=== PATIENT | female | born 1990 | race Caucasian/White ===

== ENCOUNTER 2018-04-19 14:33 | Inpatient (IN) ==
[2018-04-19] MEDS ORDERED: fentaNYL Citrate Inj 100 MCG/2 ML Ampul IV.PUSH PRN ×2 (15:34)
[2018-04-19] MEDS ORDERED: Sodium Chlor 0.9% Inj 500 ML IV.SIG PRN (15:34)
[2018-04-19] MEDS ORDERED: Sod Chloride 0.9% Inj 1,000 ML IV.CONT PRN (15:34)
[2018-04-19] MEDS ORDERED: Oxytocin 30 Units/500ml Premix 30 UNITS/500 ML BAG IV.SIG ONE (15:34)
[2018-04-19] MEDS ORDERED: Naloxone Inj 0.4 MG/ML Vial IV.PUSH PRN (15:34)
--- NOTE | 2018-04-19 15:44 | P.HPOB ---
History of Present Illness Service: [facility] [place] Primary Care Physician: No Primary Care Physician Chief Complaint: Contractions History of Present Illness: This 28 y/o female , EDC 04/28/18, EGA 38 5/7 wks presents to OB ED with c/ o contractions. The contractions started about 12:30 PM. +FM, No VB, No LOF. Her has been complicated by diet controlled GDM. She denies any other probs. She has had PNC with Dr. Wolff. Weeks Gestation:: 38 Para: 1 : 2 Review of Systems All other systems reviewed negative except as stated in HPI PMFSH - History History Provided By: Patient - Medical / Surgical Hx Neg / Unobtainable Surgical History: No Previous Surgery - Medical History Medical History: Medical History (Last Updated 04/19/18 @ 15:38 by Vee Tolbert DO) Gestational diabetes - Social History I have reviewed the patient's Social History: Yes - Tobacco History Smoking Status: Current every day smoker Tobacco Type: Cigarettes Cigarettes Per Day: 4 - Alcohol History How Often Do You Have a Drink Containing Alcohol: Never (occ Etoh when not ) - Substance Use History Substance History: No History of Abuse - Travel History History of Recent Travel: No Medications and Allergies Allergies Allergy/AdvReac Type Severity Reaction Status Date / Time No Known Allergies Allergy Uncoded 01/01/12 18:49 Home Medications Medication Instructions Recorded Confirmed Type Vitamin 04/19/18 History Tums PRN 04/19/18 History Tylenol PRN 04/19/18 History Exam Vital signs: Vital Signs 04/19/18 14:59 04/19/18 15:00 Temperature 98.2 F Pulse Rate 116 H Blood Pressure 128/85 Narrative: GENERAL: Well-nourished, well-developed patient. SKIN: Warm and dry. HEAD: Normocephalic and atraumatic. EYES: No scleral icterus. No injection or drainage. ENT: No nasal drainage noted. Mucous membranes pink. Airway patent. NECK: Supple, trachea midline. No JVD. CARDIOVASCULAR: Regular rate and rhythm without murmurs, gallops, or rubs. RESPIRATORY: Breath sounds equal bilaterally. No accessory muscle use. ABDOMEN/GI: Abdomen soft, non-tender, bowel sounds present, no rebound, no guarding Gravid GENITOURINARY: External Genitalia: intact and normal in appearance BUS glands: [normal] Cervix: [mid] Dilatation: [4-5] Effacement: [60] Station: [-] Presentation: [vtx] Membranes: [intact] Uterine Contractions: [every 3-4 min] FHT's: Category: [1] Baseline: [140] Reactive: [Yes] Variability: [Mod] Decels: [None] +Accels EXTREMITIES: No cyanosis or edema. BACK: Nontender without obvious deformity. No CVA tenderness. NEUROLOGICAL: Awake and alert. Motor and sensory grossly within normal limits. Five out of 5 muscle strength in all muscle groups. Normal speech. Results - Labs Group B Strep: Negative Assessment and Plan - Diagnosis (1) Gestational diabetes, diet controlled Code(s): O24.410 - Gestational diabetes mellitus in , diet controlled Status: Acute Qualifiers: Trimester: third trimester Qualified Code(s): O24.410 - Gestational diabetes mellitus in , diet controlled (2) Uterine contractions during Code(s): O62.2 - Other uterine inertia Status: Acute (3) 38 weeks gestation of Code(s): Z3A.38 - 38 weeks gestation of Status: Acute - Plan Admit in labor D/w Dr. Wolff Discharge Plan - Physicians Team ED Provider: Vee Tolbert Primary Care Provider: Primary Care Tracy Thomas - Rxs /Orders / Referrals /Forms Prescriptions: No Action Vitamin Tums PRN (Reason: Acid Reflux) Tylenol PRN (Reason: Pain) - Discharge Instructions Print Language: Russian
[2018-04-19] MEDS ORDERED: Citric Acid/Sodium Citrate Liq 30 ML UDC PO SCH (15:45)
[2018-04-19 16:19] LABS: Baso # (Auto) 0.1 th/mm3 (0.0-0.2); Baso % (Auto) 0.5 % (0.0-2.0); Eos % (Auto) 0.3 % (0.0-4.0); Hematocrit 34.3 % (35.0-46.0); Hemoglobin 11.6 gm/dL (11.6-15.3); Lymph # (Auto) 1.5 th/mm3 (1.0-4.8); Lymph % (Auto) 14.7 % (9.0-44.0); Mean Corpuscular HGB Conc 33.9 % (32.0-36.0); Mean Corpuscular Hemoglobin 28.8 pg (27.0-34.0); Mean Corpuscular Volume 84.9 fL (80.0-100.0); Mean Platelet Volume 7.6 fL (7.0-11.0); Mono % (Auto) 9.3 % (0.0-8.0); Neut # (Auto) 7.8 th/mm3 (1.8-7.7); Neut % (Auto) 75.2 % (16.0-70.0); Platelet Count 345 th/mm3 (150-450); Red Blood Count 4.04 mil/mm3 (4.00-5.30); Red Cell Distribution Width 13.8 % (11.6-17.2); White Blood Count 10.3 th/mm3 (4.0-11.0)
[2018-04-19 17:15] LABS: Bacteria,Urine Rare /hpf; Bilirubin,Urine Negative (Negative); Clarity,Urine Hazy (Clear); Color,Urine Yellow (Yellw/Straw); Glucose,Urine (UA) Negative (Negative); Leukocyte Esterase,Urine Moderate (Negative); Mucus,Urine Moderate /lpf (Occasional); Nitrite,Urine Negative (Negative); Specific Gravity,Urine 1.024 (1.002-1.035); Squamous Epithelial Cell,Urine 7 /hpf (0-5)
[2018-04-19] MEDS ORDERED: Influenza (Quadrivalent) Vaccine 0.5 ML Syringe IM ONE (18:15)
[2018-04-19] MEDS ORDERED: fentaNYL 2MCG-Bupiv 0.125% Epi 150 ML EPIDURAL ONE (18:57)
[2018-04-19] MEDS ORDERED: Sodium Chlor 0.9% Inj 10 ML ONE (19:27)
[2018-04-19] MEDS ORDERED: Lidocaine PF 1% Inj 5 ML Vial ONE (19:28)
[2018-04-19] MEDS ORDERED: Lidocaaine 1.5%/Epinephrine 1:200,000 PF Inj 5 ML Amp ONE (19:28)
[2018-04-19] MEDS ORDERED: fentaNYL 2MCG-Bupiv 0.125% Epi 150 ML EPIDURAL PRN (19:38)
[2018-04-19] MEDS ORDERED: fentaNYL Citrate Inj 100 MCG/2 ML Ampul EPIDURAL ONE (19:38)
[2018-04-19] MEDS ORDERED: Oxytocin 30 Units/500ml Premix 30 UNITS/500 ML BAG IV.CONT PRN (20:51)
[2018-04-20] MEDS ORDERED: Naloxone Inj 0.4 MG/ML Vial IV.PUSH PRN (00:12)
[2018-04-20] MEDS ORDERED: Oxytocin 30 Units/500ml Premix 30 UNITS/500 ML BAG IV.CONT PRN (00:12)
[2018-04-20] MEDS ORDERED: Zolpidem Tartrate 5 MG Tablet PO PRN (00:12)
[2018-04-20] MEDS ORDERED: Benzocaine 20% Top Spray 60 ML Can TOPICAL PRN (00:12)
[2018-04-20] MEDS ORDERED: Acetaminophen 325 MG Tablet PO PRN (00:12)
[2018-04-20] MEDS ORDERED: Witch Hazel 50%/Glyderin 12.5% 40 Pad Jar RECTAL PRN (00:12)
[2018-04-20] MEDS ORDERED: Bisacodyl 10 MG Supp RECTAL PRN (00:12)
--- NOTE | 2018-04-20 00:16 | P.OBDELI ---
Weeks Gestation: 38 Patient Started Active Labor: Yes Active Labor Start Date: 04/19/18 Medical Induction of Labor: No Artificial Rupture of Membrane: Yes Anesthesia: Epidural Episiotomy: none Vaginal Delivery: Normal Presentation: Occiput anterior Nuchal Cord: x1 Delayed Cord Clamping (45 sec): Yes Placenta: Spontaneous delivery, Intact, 3 vessel cord Laceration: None Estimated blood loss (mL): 150 : Male, Single
[2018-04-20 01:52] VITALS: RESP 16
[2018-04-20] MEDS: Senna/Docusate Sodium 8.6/50 MG Tablet PO SCH ×2 (09:36→20:38)
--- NOTE | 2018-04-20 13:22 | P.PNOB ---
Subjective Post day: 1 Interval history: doing well Objective Vital Signs/I&O: Vital Signs 04/19/18 14:59 04/19/18 15:00 04/19/18 16:30 Temperature 98.2 F Pulse Rate 116 H 99 H Respiratory Rate Blood Pressure 128/85 123/82 04/19/18 16:45 04/19/18 17:15 04/19/18 17:30 Temperature Pulse Rate 87 85 95 H Respiratory Rate Blood Pressure 124/80 131/84 121/80 04/19/18 17:45 04/19/18 18:30 04/19/18 19:30 Temperature 98.1 F Pulse Rate 81 104 H Respiratory Rate 18 Blood Pressure 125/89 131/91 H 04/19/18 19:50 04/19/18 19:55 04/19/18 20:10 Temperature Pulse Rate 102 H 94 H 95 H Respiratory Rate Blood Pressure 146/99 H 125/93 H 115/65 04/19/18 20:30 04/19/18 20:58 04/19/18 21:25 Temperature Pulse Rate 81 70 75 Respiratory Rate 18 Blood Pressure 113/68 107/59 L 96/53 L 04/19/18 21:38 04/19/18 22:05 04/19/18 22:10 Temperature 98.0 F Pulse Rate 80 105 H Respiratory Rate Blood Pressure 04/19/18 22:15 04/19/18 22:20 04/19/18 22:25 Temperature Pulse Rate 101 H 93 H 83 Respiratory Rate Blood Pressure 104/58 L 04/19/18 22:45 04/19/18 23:10 04/19/18 23:27 Temperature 98.2 F Pulse Rate 93 H 89 87 Respiratory Rate 18 Blood Pressure 108/64 120/75 116/73 04/19/18 23:30 04/19/18 23:35 04/19/18 23:40 Temperature Pulse Rate 68 81 72 Respiratory Rate Blood Pressure 105/67 04/20/18 00:06 04/20/18 00:15 04/20/18 00:24 Temperature Pulse Rate 95 H 89 Respiratory Rate 16 18 Blood Pressure 121/73 117/78 04/20/18 00:45 04/20/18 00:50 04/20/18 01:00 Temperature 98.0 F Pulse Rate 89 70 86 Respiratory Rate 18 18 Blood Pressure 123/77 117/79 117/72 04/20/18 01:05 04/20/18 01:30 04/20/18 09:00 Temperature 98.1 F Pulse Rate 73 54 L Respiratory Rate 18 16 16 Blood Pressure 109/71 94/57 L Intake & Output 04/19/18 04/20/18 04/20/18 18:59 06:59 18:59 Weight 68 kg Other: Weight On Admission 68 kg Result Diagrams: 04/19/18 15:45 Objective Remarks: GENERAL: Well-nourished, well-developed patient. ABDOMEN/GI: Abdomen soft, non-tender. Fundus: Firm, non-tender at umbilicus. GENITOURINARY: Light to moderate bleeding. EXTREMITIES: No cyanosis or edema, non-tender, without signs of DVT. Medications and IVs: Active Medications Acetaminophen (Tylenol) 650 mg PO Q4H PRN PRN Reason: PAIN SCALE 1 TO 2 Al Hydroxide/Mg Hydroxide (Milk Of Magnesia Liq) 30 ml PO Q12H PRN PRN Reason: Mild Constipation Benzocaine (Americaine 20% [place]) 1 spray TOPICAL Q4H PRN PRN Reason: For Perineum Discomfort Last Admin: 04/20/18 02:40 Dose: 1 spray Bisacodyl (Dulcolax Supp) 10 mg RECTAL DAILY PRN PRN Reason: SEVERE CONSITIPATION Diphtheria/Pertussis/Tetanus Vacc (Boostrix Vaccine Inj) 0.5 ml IM .ONCE ONE Stop: 04/20/18 16:01 Ephedrine Sulfate (Ephedrine/Ns Syringe) 10 mg IV.PUSH UNSCH PRN PRN Reason: SEE LABEL COMMENTS Stop: 04/20/18 19:38 Last Admin: 04/19/18 22:01 Dose: 10 mg Fentanyl/Bupivacaine/Sodium Chlor (Fentanyl 2 Mcg-Bupiv 0.125% Epi) 150 mls @ 11 mls/hr EPIDURAL PRN PRN PRN Reason: for Labor Pain Last Admin: 04/19/18 21:47 Dose: 11 mls/hr Oxytocin (Pitocin 30 Units/Ns 500 Ml Premix) 30 units in 500 mls @ 2 mls/hr IV.CONT TITRATE PRN; Protocol PRN Reason: For induction of labor Oxytocin (Pitocin 30 Units/Ns 500 Ml Premix) 30 units in 500 mls @ 100 mls/hr IV.CONT UNSCH PRN PRN Reason: Heavy bleeding Ibuprofen (Motrin) 800 mg PO Q8H PRN PRN Reason: For Cramping Last Admin: 04/20/18 05:59 Dose: 800 mg Lactulose (Lactulose Liq) 30 ml PO DAILY PRN PRN Reason: SEVERE CONSITIPATION Measles/Mumps/Rubella Vaccine Live (M-M-R Ii Vaccine Inj) 0.5 ml SQ .ONCE ONE Stop: 04/20/18 16:01 Miscellaneous Information (Misc Information) 1 each OTHER UNSCH PRN PRN Reason: SEE LABEL COMMENTS Stop: 04/20/18 19:38 Miscellaneous Information (Misc Information) 1 each OTHER UNSCH PRN PRN Reason: SEE LABEL COMMENTS Stop: 04/20/18 19:38 Naloxone HCl (Narcan Inj) 0.1 mg IV.PUSH Q2M PRN PRN Reason: for opiate reversal Ondansetron HCl (Zofran Odt) 4 mg PO Q6H PRN PRN Reason: NAUSEA OR VOMITING Last Admin: 04/20/18 02:38 Dose: 4 mg Oxycodone/Acetaminophen (Percocet 5/325 Mg) 1 tab PO Q4H PRN PRN Reason: PAIN SCALE 3 TO 5 Last Admin: 04/20/18 05:58 Dose: 1 tab Oxycodone/Acetaminophen (Percocet 5/325 Mg) 2 tab PO Q4H PRN PRN Reason: PAIN SCALE 6 TO 10 Senna/Docusate Sodium (Tamera-Colace) 1 tab PO BID NESSA Last Admin: 04/20/18 09:36 Dose: 1 tab Sennosides (Senokot) 17.2 mg PO Q12H PRN PRN Reason: Moderate Constipation Sodium Chloride (Ns Flush) 2 ml IV.FLUSH BID NESSA Sodium Chloride (Ns Flush) 2 ml IV.FLUSH PRN PRN PRN Reason: FLUSH AFTER USING IV ACCESS [place]/Glycerin (Tucks Pads) 1 applicatio RECTAL QID PRN PRN Reason: HEMORRHOIDS Last Admin: 04/20/18 02:40 Dose: 1 applicatio Zolpidem Tartrate (Ambien) 5 mg PO HS PRN PRN Reason: SLEEP Assessment and Plan - Plan Admit in labor D/w Dr. Wolff
[2018-04-20] MEDS ORDERED: Measles/Mumps/Rubella Vaccine Inj 0.5 ML Vial SQ ONE (16:00)
[2018-04-20] MEDS ORDERED: Diphtheria/Tetanus/Pertussis Vaccine Inj 0.5 ML Syringe IM ONE (16:00)
[2018-04-20 23:12] VITALS: TEMP 97.9
[2018-04-21 07:55] VITALS: BP 98/55; PULSE 49
[2018-04-21] MEDS ORDERED: Influenza (Quadrivalent) Vaccine 0.5 ML Syringe IM ONE (09:00)
[2018-04-21] MEDS: Senna/Docusate Sodium 8.6/50 MG Tablet PO SCH (10:00)
--- NOTE | 2018-04-21 17:07 | P.PNOB ---
Subjective Post day: 2 Interval history: doing well Objective Vital Signs/I&O: Vital Signs 04/20/18 20:42 04/21/18 07:30 Temperature 97.9 F 97.9 F Pulse Rate 67 49 L Respiratory Rate 16 16 Blood Pressure 105/65 98/55 L Result Diagrams: 04/19/18 15:45 Objective Remarks: GENERAL: Well-nourished, well-developed patient. CARDIOVASCULAR: Regular rate and rhythm without murmurs, gallops, or rubs. RESPIRATORY: Breath sounds equal bilaterally. No accessory muscle use. ABDOMEN/GI: Abdomen soft, non-tender. Fundus: Firm, non-tender at umbilicus. GENITOURINARY: Light to moderate bleeding. EXTREMITIES: No cyanosis or edema, non-tender, without signs of DVT. Medications and IVs: Active Medications Acetaminophen (Tylenol) 650 mg PO Q4H PRN PRN Reason: PAIN SCALE 1 TO 2 Al Hydroxide/Mg Hydroxide (Milk Of Magnesia Liq) 30 ml PO Q12H PRN PRN Reason: Mild Constipation Benzocaine (Americaine 20% Top [place]) 1 spray TOPICAL Q4H PRN PRN Reason: For Perineum Discomfort Last Admin: 04/20/18 02:40 Dose: 1 spray Bisacodyl (Dulcolax Supp) 10 mg RECTAL DAILY PRN PRN Reason: SEVERE CONSITIPATION Fentanyl/Bupivacaine/Sodium Chlor (Fentanyl 2 Mcg-Bupiv 0.125% Epi) 150 mls @ 11 mls/hr EPIDURAL PRN PRN PRN Reason: for Labor Pain Last Admin: 04/19/18 21:47 Dose: 11 mls/hr Oxytocin (Pitocin 30 Units/Ns 500 Ml Premix) 30 units in 500 mls @ 2 mls/hr IV.CONT TITRATE PRN; Protocol PRN Reason: For induction of labor Oxytocin (Pitocin 30 Units/Ns 500 Ml Premix) 30 units in 500 mls @ 100 mls/hr IV.CONT UNSCH PRN PRN Reason: Heavy bleeding Ibuprofen (Motrin) 800 mg PO Q8H PRN PRN Reason: For Cramping Last Admin: 04/21/18 15:56 Dose: 800 mg Lactulose (Lactulose Liq) 30 ml PO DAILY PRN PRN Reason: SEVERE CONSITIPATION Naloxone HCl (Narcan Inj) 0.1 mg IV.PUSH Q2M PRN PRN Reason: for opiate reversal Ondansetron HCl (Zofran Odt) 4 mg PO Q6H PRN PRN Reason: NAUSEA OR VOMITING Last Admin: 04/20/18 02:38 Dose: 4 mg Oxycodone/Acetaminophen (Percocet 5/325 Mg) 1 tab PO Q4H PRN PRN Reason: PAIN SCALE 3 TO 5 Last Admin: 04/21/18 15:56 Dose: 1 tab Oxycodone/Acetaminophen (Percocet 5/325 Mg) 2 tab PO Q4H PRN PRN Reason: PAIN SCALE 6 TO 10 Senna/Docusate Sodium (Tamera-Colace) 1 tab PO BID [facility] Last Admin: 04/21/18 10:00 Dose: 1 tab Sennosides (Senokot) 17.2 mg PO Q12H PRN PRN Reason: Moderate Constipation Sodium Chloride (Ns Flush) 2 ml IV.FLUSH BID [facility] Last Admin: 04/20/18 20:38 Dose: Not Given Sodium Chloride (Ns Flush) 2 ml IV.FLUSH PRN PRN PRN Reason: FLUSH AFTER USING IV ACCESS [place]/Glycerin (Tucks Pads) 1 applicatio RECTAL QID PRN PRN Reason: HEMORRHOIDS Last Admin: 04/20/18 02:40 Dose: 1 applicatio Zolpidem Tartrate (Ambien) 5 mg PO HS PRN PRN Reason: SLEEP Assessment and Plan - Plan Admit in labor D/w Dr. Wolff
--- NOTE | 2018-04-21 17:11 | P.DS ---
Date of admission: 04/19/18 15:40 Primary care physician: No Primary Care Physician Brief History from admission: This 28 y/o female , EDC 04/28/18, EGA 38 5/7 wks presents to OB ED with c/ o contractions. The contractions started about 12:30 PM. +FM, No VB, No LOF. Her has been complicated by diet controlled GDM. She denies any other probs. She has had PNC with Dr. Wolff. DS: Diagnosis - Discharge Diagnosis (1) (spontaneous vaginal delivery) Status: Acute (2) 38 weeks gestation of Status: Acute DS: Medications - Discharge Medications Prescriptions: oxycodone-acetaminophen 2 tab PO Q4H PRN 3 Days #15 tab PRN Reason: Pain Scale 6 To 10 DS: Summary Hospital Course: Patient came in labor and doing well - Time Spent with Patient Total time spent providing and/or coordinating discharge services: Less than 30 minutes Exam Vital signs: Vital Signs 04/20/18 20:42 04/21/18 07:30 Temperature 97.9 F 97.9 F Pulse Rate 67 49 L Respiratory Rate 16 16 Blood Pressure 105/65 98/55 L - Constitutional no acute distress Results Procedures completed during hospitalization: Discharge Plan - Discharge Disposition Patient Disposition: 01 Discharge Home - Discharge Condition Condition: Stable - Discharge Order Discharge Orders: Discharge Order (Routine); Ordered 04/21/18 Ordered By: Yoel Wolff - Physicians Team Primary Care Provider: Primary Care Martha,Tracy Attending Provider: Yoel Wolff
== END 2018-04-21 18:29 | disposition home or self-care (01) | DRG 807 ==
LOC: HOBED 14:33 → H2E 15:40 → H1EA 04-20 02:01
PROVIDERS: ADMIT Obstetrics & Gynecology; ATTEND Obstetrics & Gynecology
CPT/HCPCS: 59025; 81001; 85025; 86900; 86901; 87086; 90471; 90658; 90686; 90715; 99285; G0008; J2590; J7120; Q2038